=== PATIENT | female | born 1970 | race Caucasian/White ===

== ENCOUNTER → 2021-01-28 | Outpatient (CLI) | payer BC | LOC: MC.RAD 09:59 | DX: Z12.31 Encounter for screening mammogram for malignant neoplasm of breast (principal); N64.89 Other specified disorders of breast; N63.10 Unspecified lump in the right breast, unspecified quadrant ==

== ENCOUNTER → 2021-02-03 | Outpatient (CLI) | payer BC | LOC: MC.RAD 13:35 | DX: N63.13 Unspecified lump in the right breast, lower outer quadrant (principal); R92.2 Inconclusive mammogram; N64.89 Other specified disorders of breast ==

== ENCOUNTER → 2021-10-24 | Outpatient (CLI) | payer BC | LOC: MC.RAD 07:51 | DX: N63.10 Unspecified lump in the right breast, unspecified quadrant (principal) ==